=== PATIENT | female | born 1970 | race Caucasian/White ===

== ENCOUNTER 2017-03-03 20:27 | Emergency (ER) | payer OTHER ==
[2017-03-03 21:37] VITALS: BP 120/76; PULSE 73; RESP 16; TEMP 97.7; O2SAT 94
[2017-03-03] MEDS ORDERED: IBUPROFEN 200 MG TAB PO ONE (21:37)
--- NOTE | 2017-03-03 22:01 | UCPHY ---
H & P Time Seen by Provider: 03/03/17 21:50 Patient Type: New HPI/ROS: This patient injured her foot 1 month ago but this is her 1st visit see a physician. 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 She had swelling and ecchymosis. Symptoms persisted but were gradually improving particularly over the preceding week while on spring break. However upon returning back to school being on her feet again symptoms have again worsen to 6/10 when she ambulates and 2/10 at rest. She also notes recurrence of swelling. ROS: No other musculoskeletal complaints. No numbness. 5 point ROS is otherwise negative. Past Medical/Surgical History: Otherwise healthy except for hypothyroidism on thyroid replacement Smoking Status: Unknown if ever smoked Physical Exam: Physical Exam Vital signs are normal. General: No acute distress HEENT: Atraumatic. Eyes: Pupils equal and react to light. Extraocular motions are intact. Lungs: No respiratory distress. Cardiac: Brisk capillary refill is intact throughout. Pulses are 2+ and symmetric in the affected extremity. Extremities: Atraumatic normal except for right foot exam which is notable for mild swelling and tenderness to the dorsal lateral midfoot on the right side. No 5th metatarsal tenderness. No ankle swelling or tenderness. No Achilles tenderness. Skin: No rash or pallor. Neuro: Alert and oriented x3 with no sensorimotor deficits. Initial differential diagnosis: Foot sprain versus fracture, foot contusion Constitutional: Initial Vital Signs Temperature (C) 36.5 C 03/03/17 21:15 Heart Rate 73 03/03/17 21:15 Respiratory Rate 16 03/03/17 21:15 Blood Pressure 120/76 03/03/17 21:15 O2 Sat (%) 94 03/03/17 21:15 O2 Delivery Mode Room Air Allergies/Adverse Reactions: codeine Allergy (Verified 03/03/17 21:31) Home Medications: Medication Instructions Recorded Nature-Throid 03/03/17 MDM/Departure - MDM Diagnostics: Foot x-ray: There is a mild cortical abnormality to the lateral aspect of the cuboid bone in the affected foot question subacute fracture by my interpretation. I discussed this with Seun Martinez , radiologist who agrees that this may represent a subacute fracture. Medications Given: Discontinued Medications Ibuprofen (Motrin) 600 mg PO EDNOW ONE Stop: 03/03/17 21:38 Last Admin: 03/03/17 21:56 Dose: 600 mg ED Course/Re-evaluation: Patient is placed in a postop shoe. I counseled her regarding foot injury. She is encouraged to use crutches until she follows up with Dr. Kim-liturgical music director for further evaluation. She is given a disc copy of her radiograph bring to that follow-up appointment. - Depart Disposition: Home, Routine, Self-Care Clinical Impression: Foot injury Qualifiers: Encounter type: initial encounter Laterality: right Qualified Code(s): S99.921A - Unspecified injury of right foot, initial encounter Condition: Good Instructions: Crutch Instructions (ED), Foot Fracture in Adults (ED) Additional Instructions: Diagnosis: Foot injury It appears that you fractured cuboid bone month ago. Plan: Postop shoe and crutches Follow up with Dr. Kim-neonatal specialist for further evaluation and device about held long to keep weight off of your foot. Ibuprofen Tylenol for pain as needed. Return for any significant worsening despite the treatment plan Referrals: NONE *PRIMARY CARE P,. [Primary Care Provider] - As per Instructions Angie Kim [Doctor of Podiatric Medicine] - As per Instructions - PQRS PQRS Measurement: NA
== END 2017-03-03 22:06 | disposition home or self-care (01) ==
LOC: CED 20:27
DX: S99.921A Unspecified injury of right foot, initial encounter (principal); Y99.0 Civilian activity done for income or pay; W22.09XA Striking against other stationary object, initial encounter; Y92.211 Elementary school as the place of occurrence of the external cause
CPT/HCPCS: 73630-PO; 99203-PO; G0463-PO